=== PATIENT | female | born 1935 | race Caucasian/White ===

== ENCOUNTER 2017-07-13 14:02 | Inpatient (IN) ==
[2017-07-13] MEDS ORDERED: 0.9 % SODIUM CHLORIDE 1,000 ML IV ONE ×2 (14:33→16:26)
--- NOTE | 2017-07-13 14:40 | Emergency Department Note ---
Weakness HPI - General Chief complaint: Weakness Stated complaint: SOB, Weakness, Increased Edema Time Seen by Provider: 07/13/17 14:21 Source: patient, family, EMS Mode of arrival: EMS Limitations: no limitations - History of Present Illness HPI Narrative: 81-year-old female with a history of increased weakness over the past week. Family states she has been able to get out of bed because of the weakness. This is been greater than 1 week. Denies chest pain but is having some numbness of breath patient is a poor historian he does have a history of COPD and CHF she is on Aldactone and Lasix. Is on multiple pulmonary medications. Eyes any chest pain eyes any urgency frequency or dysuria denies any nausea vomiting or diarrhea issues. The heart rate is going approximately 120s-130. Appears to be in A. fib was told that she has had a tachycardia and had an ablation in the past. but I do not see any medications for control of the A. fib in her med list. She is on no blood thinners but does take an 81 mg aspirin a day. - Related Data Home Medications Medication Instructions Recorded Confirmed Albuterol Sulfate [Ventolin] 2.5 mg NEB PRN PRN 07/13/17 07/13/17 Budesonide/Formoterol Fumarate 10.2 gm IH DAILY 07/13/17 07/13/17 [Symbicort 80-4.5 Mcg Inhaler] Fluconazole [Diflucan] 100 mg PO DAILY 07/13/17 07/13/17 Furosemide [Lasix] 40 mg PO Q4HP PRN 07/13/17 07/13/17 Spironolactone [Aldactone] 50 mg PO DAILY 07/13/17 07/13/17 Tiotropium [place] [Spiriva] 18 mcg INH DAILY 07/13/17 07/13/17 azaTHIOprine [Imuran] 50 mg PO TID 07/13/17 07/13/17 Allergies Allergy/AdvReac Type Severity Reaction Status Date / Time Egg Derived Allergy Mild Sneezing Verified 07/13/17 14:04 adhesive tape AdvReac Mild Rash Verified 07/13/17 14:04 Sulfa (Sulfonamide AdvReac Mild Nausea Verified 07/13/17 14:04 Antibiotics) Review of Systems All systems ED: reviewed and negative except as stated. Constitutional: Denies: fever, chills Eyes: Denies: eye pain ENT ED: Denies: ear pain Cardiovascular: Denies: chest pain, palpitations Respiratory: Denies: shortness of breath, cough Gastrointestinal: Denies: abdominal pain, nausea Genitourinary: Denies: dysuria, urgency, frequency Musculoskeletal: Denies: back pain, joint swelling Integumentary: Denies: rash, lesions Neurological: Reports: weakness. Denies: headache, numbness, paresthesias, confusion Psychiatric: Denies: anxiety, depression Endocrine: Denies: fatigue Hematological/Lymphatic: Denies: easy bleeding Past Medical History - Past Medical History Medical history: Reports: atrial fibrillation, CHF, COPD - Social History smoking status: Former smoker Alcohol use: Reports: Unknown Drug use: Reports: none Physical Exam Limitations: no limitations General appearance: alert Head: atraumatic, normocephalic Eye: Present: normal appearance, PERRL ENT: normal exam, normal oropharynx Neck: Present: normal inspection, full ROM, trachea midline Chest: Present: normal inspection, symmetric chest wall rise. Absent: tenderness Respiratory: Present: normal lung sounds bilaterally. Absent: respiratory distress, wheezes Cardiovascular: Present: regular rate, normal rhythm. Absent: bradycardia, tachycardia Abdominal: Present: soft, normal bowel sounds. Absent: distention, tenderness, guarding, rebound, rigidity Extremities: Present: normal inspection, full ROM Back: Present: normal inspection, full ROM Neurological: Present: alert, oriented X3, CN II-XII intact, motor sensory deficit Psychiatric: Present: normal affect, normal mood Course Vital Signs Temperature 98.0 F 07/13/17 14:04 Pulse Rate 130 H 07/13/17 14:04 Respiratory Rate 22 07/13/17 14:04 Blood Pressure 155/82 07/13/17 14:04 Pulse Oximetry (%) 98 07/13/17 14:04 Temperature 98.0 F 07/13/17 14:04 Pulse Rate 103 H 07/13/17 17:46 Respiratory Rate 16 07/13/17 17:46 Blood Pressure 149/74 07/13/17 17:46 Pulse Oximetry (%) 94 07/13/17 17:46 Weakness - MDM Narrative Medical decision making narrative: In A. fib RVR, controlled with diltialzem drip. chest possible nodule and ct recommended. ua ok lactic was 2.5 Dr Anderson contacted and pt to be admitted - Lab Data Result diagrams: 07/13/17 14:41 07/13/17 14:41 Lab Results 07/13/17 07/13/17 07/13/17 Range/Units 14:41 14:41 14:41 WBC 12.0 H (4.5-11.0) K/mcL RBC 4.10 (4.00-5.20) M/mcL Hgb 15.3 H (12.0-15.0) g/dL Hct 45.0 (36.0-48.0) % MCV 109.7 H (80.0-100.0) fL MCH 37.4 H (26.0-34.0) pg MCHC 34.1 (31.0-36.0) g/dL RDW 18.2 H (11.5-14.5) % Plt Count 68 L (140-440) K/mcL MPV 9.0 (7.4-10.4) fL Total Counted 100 Seg Neutrophils % 93 H (38-78) % Band Neutrophils % 1 (0-10) % Lymphocytes % 2 L (15-49) % Monocytes % (Manual) 1 (1-12) % Metamyelocytes % 1 H (0-0) % Myelocytes % 2 H (0-0) % Nucleated RBCs 2 H (0-0) % Platelet Estimate Decreased (NORMAL) RBC Morphology Abnorm A (NORMAL) Basophilic Stippling Occ A (NONE SEEN) Anisocytosis 1+ A (NONE SEEN) Macrocytosis 2+ A (NONE SEEN) PT (11.9-14.5) sec INR (0.9-1.1) VBG Lactic Acid 2.5 H (0.5-2.2) mmol/L Sodium 138 (133-145) mmol/L Potassium 4.1 (3.3-5.1) mmol/L Chloride 88 L (96-108) mmol/L Carbon Dioxide 39 H (22-30) mmol/L Anion Gap 11.0 (8-16) BUN 53 H (8-23) mg/dl Creatinine 1.0 (0.6-1.1) mg/dl GFR Calculation 53 Glucose 143 H (70-105) mg/dL Calcium 9.7 (8.6-10.4) mg/dl Total Bilirubin 3.4 H (0.0-1.0) mg/dL AST 186 H (0-37) U/l ALT 66 H (0-40) U/l Alkaline Phosphatase 214 H (39-117) U/L Total Creatine Kinase (24-170) IU/L CK-MB (CK-2) (0-2.9) ng/ml Myoglobin (25-58) ng/ml Troponin T (0-0.03) ng/ml NT-Pro-B Natriuret Pep 4342.0 H (0-450) pg/ml Total Protein 6.7 (5.9-8.4) gm/dL Albumin 3.3 (3.2-5.2) gm/dL Globulin 3.4 (2.2-3.7) gm/dL Albumin/Globulin Ratio 1.0 (1.0-2.3) Urine Color Urine Appearance Urine pH (5.0-9.0) Ur Specific [place] (1.000-1.035) Urine Protein (NEG) mg/dL Urine Glucose (UA) (NEG) mg/dL Urine Ketones (NEG) mg/dL Urine Occult Blood (<0.03) mg/dL Urine Nitrate (NEG) Urine Bilirubin (NEG) mg/dL Urine Urobilinogen (NEG) mg/dL Ur Leukocyte Esterase (NEG) /uL Ur Culture Indicated? 07/13/17 07/13/17 07/13/17 Range/Units 14:41 14:41 14:41 WBC (4.5-11.0) K/mcL RBC (4.00-5.20) M/mcL Hgb (12.0-15.0) g/dL Hct (36.0-48.0) % MCV (80.0-100.0) fL MCH (26.0-34.0) pg MCHC (31.0-36.0) g/dL RDW (11.5-14.5) % Plt Count (140-440) K/mcL MPV (7.4-10.4) fL Total Counted Seg Neutrophils % (38-78) % Band Neutrophils % (0-10) % Lymphocytes % (15-49) % Monocytes % (Manual) (1-12) % Metamyelocytes % (0-0) % Myelocytes % (0-0) % Nucleated RBCs (0-0) % Platelet Estimate (NORMAL) RBC Morphology (NORMAL) Basophilic Stippling (NONE SEEN) Anisocytosis (NONE SEEN) Macrocytosis (NONE SEEN) PT 17.9 H (11.9-14.5) sec INR 1.5 H (0.9-1.1) VBG Lactic Acid (0.5-2.2) mmol/L Sodium (133-145) mmol/L Potassium (3.3-5.1) mmol/L Chloride (96-108) mmol/L Carbon Dioxide (22-30) mmol/L Anion Gap (8-16) BUN (8-23) mg/dl Creatinine (0.6-1.1) mg/dl GFR Calculation Glucose (70-105) mg/dL Calcium (8.6-10.4) mg/dl Total Bilirubin (0.0-1.0) mg/dL AST (0-37) U/l ALT (0-40) U/l Alkaline Phosphatase (39-117) U/L Total Creatine Kinase 155 (24-170) IU/L CK-MB (CK-2) 6.6 H (0-2.9) ng/ml Myoglobin 256 H (25-58) ng/ml Troponin T 0.02 (0-0.03) ng/ml NT-Pro-B Natriuret Pep (0-450) pg/ml Total Protein (5.9-8.4) gm/dL Albumin (3.2-5.2) gm/dL Globulin (2.2-3.7) gm/dL Albumin/Globulin Ratio (1.0-2.3) Urine Color Urine Appearance Urine pH (5.0-9.0) Ur Specific [place] (1.000-1.035) Urine Protein (NEG) mg/dL Urine Glucose (UA) (NEG) mg/dL Urine Ketones (NEG) mg/dL Urine Occult Blood (<0.03) mg/dL Urine Nitrate (NEG) Urine Bilirubin (NEG) mg/dL Urine Urobilinogen (NEG) mg/dL Ur Leukocyte Esterase (NEG) /uL Ur Culture Indicated? 07/13/17 Range/Units 16:32 WBC (4.5-11.0) K/mcL RBC (4.00-5.20) M/mcL Hgb (12.0-15.0) g/dL Hct (36.0-48.0) % MCV (80.0-100.0) fL MCH (26.0-34.0) pg MCHC (31.0-36.0) g/dL RDW (11.5-14.5) % Plt Count (140-440) K/mcL MPV (7.4-10.4) fL Total Counted Seg Neutrophils % (38-78) % Band Neutrophils % (0-10) % Lymphocytes % (15-49) % Monocytes % (Manual) (1-12) % Metamyelocytes % (0-0) % Myelocytes % (0-0) % Nucleated RBCs (0-0) % Platelet Estimate (NORMAL) RBC Morphology (NORMAL) Basophilic Stippling (NONE SEEN) Anisocytosis (NONE SEEN) Macrocytosis (NONE SEEN) PT (11.9-14.5) sec INR (0.9-1.1) VBG Lactic Acid (0.5-2.2) mmol/L Sodium (133-145) mmol/L Potassium (3.3-5.1) mmol/L Chloride (96-108) mmol/L Carbon Dioxide (22-30) mmol/L Anion Gap (8-16) BUN (8-23) mg/dl Creatinine (0.6-1.1) mg/dl GFR Calculation Glucose (70-105) mg/dL Calcium (8.6-10.4) mg/dl Total Bilirubin (0.0-1.0) mg/dL AST (0-37) U/l ALT (0-40) U/l Alkaline Phosphatase (39-117) U/L Total Creatine Kinase (24-170) IU/L CK-MB (CK-2) (0-2.9) ng/ml Myoglobin (25-58) ng/ml Troponin T (0-0.03) ng/ml NT-Pro-B Natriuret Pep (0-450) pg/ml Total Protein (5.9-8.4) gm/dL Albumin (3.2-5.2) gm/dL Globulin (2.2-3.7) gm/dL Albumin/Globulin Ratio (1.0-2.3) Urine Color Yellow Urine Appearance Clear Urine pH 5.0 (5.0-9.0) Ur Specific [place] 1.014 (1.000-1.035) Urine Protein Neg (NEG) mg/dL Urine Glucose (UA) Negative (NEG) mg/dL Urine Ketones Neg (NEG) mg/dL Urine Occult Blood Neg (<0.03) mg/dL Urine Nitrate Neg (NEG) Urine Bilirubin Neg (NEG) mg/dL Urine Urobilinogen 4.0 A (NEG) mg/dL Ur Leukocyte Esterase Neg (NEG) /uL Ur Culture Indicated? No Disposition Pt seen by POWER SYSTEMS ENGINEER/PA only: No Clinical Impression: Atrial fibrillation with RVR, Weakness Disposition: Xfer As Inpt ([facility]) Condition: Fair
[2017-07-13] MEDS ORDERED: DILTIAZEM 25 MG/5 ML VIAL IV ONE (14:54)
[2017-07-13] MEDS ORDERED: DILTIAZEM 125 MG in DEXTROSE 5% IN WATER 100 ML IV SCH (15:00)
[2017-07-13 15:47] LABS: ALT/SGPT 66 U/l (0-40); Albumin 3.3 gm/dL (3.2-5.2); Alkaline Phosphatase 214 U/L (39-117); Blood Urea Nitrogen 53 mg/dl (8-23)
--- NOTE | 2017-07-13 16:02 | XRay Report ---
INDICATION: Dyspnea TECHNIQUE: AP chest x-ray,portable semiupright COMPARISON: 11/16/2014, 09/19/2013 FINDINGS:There is right hilar enlargement. There is right-sided mediastinal enlargement. Findings are consistent with adenopathy or mass. There are nodular densities in the right lung. Findings are suspicious for metastases. Left lung is negative. Heart size is enlarged. No evidence for congestive heart failure. Chest CT scan with contrast material is recommended for further evaluation. IMPRESSION: 1. Right hilar and mediastinal enlargement. Recommend chest CT scan 2. Nodular densities in the right lung may be metastases. 3. Cardiomegaly without evidence for congestive heart failure. Interpreted and Authenticated by: Nnamdi Lujan 07/13/17
[2017-07-13 16:05] LABS: Mean Cell Volume 109.7 fL (80.0-100.0); Mean Corpuscular HGB Conc 34.1 g/dL (31.0-36.0); Mean Corpuscular Hemoglobin 37.4 pg (26.0-34.0); Platelet Count 68 K/mcL (140-440); Red Cell Distribution Width 18.2 % (11.5-14.5)
[2017-07-13 16:18] LABS: Anisocytosis 1+ (NONE SEEN); Band Neutrophils % 1 % (0-10); Basophilic Stippling OCC (NONE SEEN); Lymphocytes % 2 % (15-49); Macrocytosis 2+ (NONE SEEN); Metamyelocytes % 1 % (0-0); Monocytes % (Manual) 1 % (1-12); Myelocytes % 2 % (0-0); Platelet Estimate DECREASED (NORMAL); RBC Morphology ABNORM (NORMAL); Segmented Neutrophils % 93 % (38-78)
[2017-07-13] MEDS ORDERED: FUROSEMIDE 40 MG/4 ML VIAL IV ONE (16:57)
[2017-07-13 17:13] LABS: Appearance,Urine CLEAR; Bilirubin,Urine NEG (NEG); Color,Urine YELLOW; Glucose,Urine (UA) NEGATIVE (NEG); Leukocyte Esterase,Urine NEG /uL (NEG); Protein,Urine NEG (NEG); Specific Gravity,Urine 1.014 (1.000-1.035); Urine Blood NEG mg/dL (<0.03)
[2017-07-13] MEDS ORDERED: IPRATROPIUM/ALBUTEROL 3 ML AMPUL.NEB NEB ONE (17:53)
[2017-07-13 18:25] LABS: Creatine Kinase MB 6.6 ng/ml (0-2.9)
[2017-07-13] MEDS ORDERED: POLYETHYLENE GLYCOL 3350 17 GM PACKET PO PRN (20:02)
[2017-07-13] MEDS ORDERED: ACETAMINOPHEN 1,000 MG/100 ML BOTTLE IV PRN (20:02)
[2017-07-13] MEDS ORDERED: IPRATROPIUM/ALBUTEROL 3 ML AMPUL.NEB NEB PRN (20:02)
[2017-07-13] MEDS ORDERED: POTASSIUM CHLORIDE 20 MEQ PACKET PO PRN (20:02)
[2017-07-13] MEDS ORDERED: 0.9 % SODIUM CHLORIDE 1,000 ML IV SCH ×2 (20:02)
[2017-07-13] MEDS ORDERED: ACETAMINOPHEN 325 MG TABLET PO PRN (20:02)
[2017-07-13] MEDS ORDERED: MAGNESIUM SULFATE 2 GM/50 ML BAG IV PRN (20:02)
[2017-07-13] MEDS ORDERED: traZODone HCL 50 MG TABLET PO PRN (20:02)
[2017-07-13] MEDS ORDERED: ONDANSETRON 4 MG/2 ML VIAL IV PRN (20:02)
[2017-07-13] MEDS ORDERED: ALBUTEROL SULFATE 2.5 MG/3 ML NEBULIZER NEB PRN (20:02)
[2017-07-13 20:45] LABS: C-Reactive Protein 1.2 mg/dl (0.0-0.8)
[2017-07-13] MEDS: HYDROcodone/APAP 5/325MG TABLET PO PRN (20:50)
[2017-07-13] MEDS: DILTIAZEM 125 MG in 0.9 % SODIUM CHLORIDE 100 ML IV SCH (20:52)
[2017-07-13] MEDS: METOPROLOL TARTRATE 5 MG/5 ML VIAL IV SCH ×2 (20:54→21:30)
[2017-07-13] MEDS ORDERED: SENNOSIDES/DOCUSATE SODIUM 1 TAB TABLET PO SCH (21:00)
[2017-07-13] MEDS ORDERED: FUROSEMIDE 20 MG/2 ML VIAL IV ONE (21:30)
[2017-07-13] MEDS: CYANOCOBALAMIN (VITAMIN B-12) 500 MCG TABLET PO SCH (22:08)
[2017-07-13] MEDS: HEPARIN 5,000 UNIT/ML VIAL SQ SCH (22:08)
[2017-07-13] MEDS: DOCUSATE SODIUM 100 MG CAPSULE PO SCH (22:09)
[2017-07-13] MEDS: METOLAZONE 2.5 MG TABLET PO SCH (22:09)
[2017-07-13] MEDS: azaTHIOprine 50 MG TABLET PO SCH (22:09)
[2017-07-13] MEDS: 0.9 % SODIUM CHLORIDE 10 ML SYRINGE IV SCH (22:10)
[2017-07-13] MEDS ORDERED: 0.9 % SODIUM CHLORIDE 10 ML SYRINGE IV PRN (22:44)
--- NOTE | 2017-07-13 23:52 | History and Physical Report ---
DATE OF ADMISSION: 07/13/2017 DATE OF ADMISSION: 07/13/2017 REASON FOR ADMISSION: Weakness, generalized weight gain, lethargy, and shortness of breath. HISTORY OF CHIEF COMPLAINT: Niecy is an 81-year-old who lives with her family, along with her oJsesito at [place]. She has been in her baseline state of health and has been ambulating with the use of a walker. However, over the last 10 to 14 days, the patient has gotten progressively weaker wherein she has stopped ambulating and has been mostly bedridden. She has gained substantial amount of weight, over 20 pounds, with significant dependent edema including bilateral lower extremity up to the thighs. Over the last one week, she has had increasing orthopnea and progressive shortness of breath, limiting her functionality. Symptoms have progressed that over the last couple of days she has been barely able to move. She has had significant loss of appetite. However, she denies associated cough, fever, chest palpitation, diarrhea, dysuria, or bloody stool. She further denies joint pain. She endorses to generalized bruising, upper and lower extremities. With worsening symptoms, she came to [facility] ER along with her daughter, Dona and her Josesito. Initial workup was significant for atrial fibrillation with RVR. The patient was started on diltiazem drip. She received bronchodilators for history of COPD and received Lasix for shortness of breath. After initial workup, Hospitalist Service was consulted for admission. At the time of evaluation, the patient is fairly short of breath, fatigue, lethargic and was not able to provide a detailed history. However, most of the history was obtained from family and medical records and ED physician. REVIEW OF SYSTEMS: A 10-point review of system was performed and is negative except the ones discussed above. PAST MEDICAL HISTORY: Significant for: 1. Atrial fibrillation, status post ablation. 2. Reactive airway disease/COPD. 3. History of congestive heart failure. 4. History of SLE, currently on azathioprine, managed by Dr. Walton. ALLERGIES: Known to SULFA. SOCIAL HISTORY: No history of smoking or alcoholism. Lives with her in [place]. CURRENT MEDICATIONS: 1. Azathioprine 50 mg 3 times a day. 2. Tiotropium 18 mcg inhaled daily. 3. Aldactone 50 mg daily. 4. Furosemide 40 every 4 hours as needed. 5. Fluconazole 100 mg daily. 6. Symbicort inhaled 10.2 daily. 7. Albuterol inhaled every 4 hours. PHYSICAL EXAMINATION: GENERAL EXAM: The patient is anxious, short of breath, fatigue, lethargic. VITAL SIGNS: BMI 31.3. Height 5 feet 7 inches. Blood pressure 128/49. Respiratory rate 18. Temperature 98. Pulse between 130s and 140, improving to 110 on diltiazem drip. Saturations 98 percent on 4 liters of oxygen. HEENT: Pupils symmetric. Oral cavity dry. No ear or nose discharge. Head: Normocephalic and atraumatic. NECK: No lymphadenopathy. CHEST: S1, S2. Tachycardia, irregular rhythm. ESM grade 1. Bilateral diminished breath sounds, late inspiratory crackles, shallow breathing. ABDOMEN: Pendulous, edematous. SKIN: No suspicious lesions. Generalized ecchymosis on the skin of upper and lower extremities. LOWER EXTREMITIES: Significant for 2+ pitting edema from the thighs to the ankle. No joint swelling or erythema. PSYCHIATRIC: Anxious, lethargic, fatigued, but cooperative. NEURO: Moving all four extremities. Higher functions could not be checked as the patient is extremely lethargic and fatigued, but she is oriented. LABS AND IMAGING: White count 12, hemoglobin 15, platelets 68. ESR 10. INR 1.5. Lactic acid 2.5. Sodium 138, potassium 4.1, creatinine 1, BUN 53, bilirubin 3.4. Ferritin 1205. AST 186, ALT 66. CK-MB 6.6. Troponin negative. BNP 4342. UA unremarkable. X-ray chest: Right hilar mediastinal enlargement. Nodular density in the right lung with metastasis. Cardiomegaly without evidence of congestive heart failure ASSESSMENT AND PLAN: An 81-year-old admitted with anasarca, shortness of breath, atrial fibrillation, rapid ventricular response. 1. Atrial fibrillation, rapid ventricular response. The patient is started on diltiazem drip. Continue rate control measures. 2. Anasarca, unclear etiology, likely cardiac. Start patient on diuretics including Lasix, spironolactone/metolazone for sequential nephron blockade, while we will target 8 to 10 liters net negative over the next 72 hours. [place] catheter has been placed. Echocardiogram to evaluate left ventricular systolic function. 3. Lung nodules. CT scan of chest in the a.m. to rule out mass lesion. 4. Hypoxic respiratory infection secondary to combination of chronic obstructive pulmonary disease exacerbation/anasarca with hypoventilation. Continue pulmonary toilet, supplemental oxygen, and aggressive diuresis along with bronchodilators. 5. Other prior medical issues, including: A. History of systemic lupus erythematosus. Continue azathioprine. B. Reactive airway disease/chronic obstructive pulmonary disease. Continue Spiriva and ventolin, along with Symbicort. C. Prophylaxis. Heparin CODE STATUS: FULL CODE. PLAN: 1. Admit as inpatient in ICU. 2. Aggressive diuresis. 3. Rate control measures. 4. Aggressive physical therapy in light of significant deconditioning. 5. Case management to arrange SNF transfer. Overall, a high-complexity admit in this patient with anasarca, atrial fibrillation, RVR, and severe deconditioning. Plan a minimum 2 midnight stay. AA:arpan Job ID: [id number] Doc ID: [id number] Jad NASSAR
[2017-07-14] MEDS: HYDROcodone/APAP 5/325MG TABLET PO PRN ×2 (00:17→04:51)
[2017-07-14] MEDS ORDERED: DILTIAZEM 125 MG/25 ML VIAL IV ONE (01:00)
[2017-07-14] MEDS: DILTIAZEM 125 MG in 0.9 % SODIUM CHLORIDE 100 ML IV SCH ×2 (01:28→09:08)
[2017-07-14] MEDS ORDERED: METOPROLOL TARTRATE 5 MG/5 ML VIAL IV PRN ×2 (02:06→17:58)
[2017-07-14] MEDS ORDERED: FUROSEMIDE 20 MG/2 ML VIAL IV ONE ×2 (02:07→02:50)
[2017-07-14] MEDS ORDERED: METOPROLOL TARTRATE 5 MG/5 ML VIAL IV ONE (02:50)
[2017-07-14] MEDS: 0.9 % SODIUM CHLORIDE 10 ML SYRINGE IV SCH ×3 (04:52→21:13)
[2017-07-14 06:42] LABS: Mean Cell Volume 110.5 fL (80.0-100.0); Mean Corpuscular HGB Conc 34.2 g/dL (31.0-36.0); Mean Corpuscular Hemoglobin 37.8 pg (26.0-34.0); Platelet Count 51 K/mcL (140-440); RBC 3.48 M/mcL (4.00-5.20); Red Cell Distribution Width 18.6 % (11.5-14.5)
[2017-07-14 08:00] LABS: ALT/SGPT 57 U/l (0-40); Albumin 2.6 gm/dL (3.2-5.2); Albumin/Globulin Ratio 0.9 (1.0-2.3); Alkaline Phosphatase 179 U/L (39-117); Bilirubin,Direct 1.6 mg/dL (0.0-0.3); Blood Urea Nitrogen 47 mg/dl (8-23); Gamma Glutamyl Transpeptidase 247 U/L (5-36); Uric Acid 8.1 mg/dL (2.5-8.0)
[2017-07-14 08:15] LABS: Anisocytosis 1+ (NONE SEEN); Band Neutrophils % 7 % (0-10); Lymphocytes % 1 % (15-49); Macrocytosis 1+ (NONE SEEN); Monocytes % (Manual) 5 % (1-12); Platelet Estimate DECREASED (NORMAL); RBC Morphology ABNORM (NORMAL); Segmented Neutrophils % 87 % (38-78)
[2017-07-14] MEDS ORDERED: FORMOTEROL FUMARATE INH SCH (09:00)
[2017-07-14] MEDS ORDERED: MULTIVIT,THER IRON,CA,FA & MIN 1 TABLET PO SCH (09:00)
[2017-07-14] MEDS ORDERED: BUDESONIDE INH SCH (09:00)
[2017-07-14] MEDS ORDERED: FOLIC ACID 1 MG TABLET PO SCH (09:00)
[2017-07-14] MEDS ORDERED: TIOTROPIUM BROMIDE 18 MCG INHALANT INH SCH (09:00)
[2017-07-14] MEDS ORDERED: FLUCONAZOLE 100 MG TABLET PO SCH (09:00)
[2017-07-14] MEDS ORDERED: SPIRONOLACTONE 25 MG TABLET PO SCH (09:00)
[2017-07-14] MEDS: METOLAZONE 2.5 MG TABLET PO SCH ×2 (09:07→15:39)
[2017-07-14] MEDS: FUROSEMIDE 40 MG/4 ML VIAL IV SCH ×2 (09:29→15:39)
--- NOTE | 2017-07-14 12:12 | Internal Med Progress Note ---
Medical - PN: Subj Patient information: Note initiated : 07/14/17 at 12:07 pm Service Date, if different from initiated Date: [] Patient: Niecy Canchola 81 y/o F admitted on 07/13/17 for Anasarca, SOB, AFib w/ RVR. Chief Complaint: [] Interval history: 81-year-old with profound weakness A. fib RVR anasarca and acute pulmonary edema. admitted to telemetry. Aggressive diuresis/rate control measures. Echocardiogram pending. PT OT eval 07/14- moderate response to diuretics with over thousand cc out last 18 hours. overnight fever chills. Persistent shortness of breath. Generalized ecchymosis. Foleys draining dark urine. Family at bedside.white count 11.2, platelets 51. 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 Will need oncology follow-up and outpatient. improving BUN. Bilirubin at 3.3 and indirect fraction 1.7. downtrending LFTs. ultrasound right upper quadrant. mild rhabdomyolysis clinically clearing. clinical picture suggestive of pulmonary hypertension with passive hepatic congestion and possible congestive hepatopathy. Await echocardiogram. continue aggressive diuresis. Continue close monitoring of map due to cardiac output dependent on preload. systolics around 120 - Constitutional Vitals: Vital Signs Temp Pulse Resp BP Pulse Ox 98.0 F 102 H 13 122/67 93 07/14/17 07:13 07/14/17 09:01 07/14/17 12:06 07/14/17 12:01 07/14/17 09:01 Period Temp Pulse Resp BP Sys/Orellana Pulse Ox Last 24 Hr 97.7 F-99.4 F 40-133 13-37 93-170/39-110 87-100 Intake and Output 07/13/17 07/14/17 07/14/17 21:59 05:59 13:59 Intake Total 1680 / 1680 1404 / 1404 Output Total 0 / 0 887 / 887 515 / 515 Balance 1680 / 1680 517 / 517 -515 / -515 Weight 185 lb 4.8 oz Intake & Output: Intake & Output 07/13/17 07/14/17 07/14/17 21:59 05:59 13:59 Intake Total 1680 / 1680 1404 / 1404 Output Total 0 / 0 887 / 887 515 / 515 Balance 1680 / 1680 517 / 517 -515 / -515 Weight 185 lb 4.8 oz Intake: IV 1680 / 1680 1044 / 1044 Sodium Chloride 0.9% 1,000 ml @ 1666 / 1666 933 / 933 Wide Open IV [facility] Rx#: [id number] Cardizem 125 mg In Dextrose 5% 111 / 111 in Water 100 ml @ 5 MG/HR 5 mls /hr IV Q12H [facility] Rx#:[id number] Oral 360 / 360 Output: Urine Catheter Amount 887 / 887 155 / 155 Void Amount 0 / 0 360 / 360 Fem Cath 0 / 0 General appearance: morbidly obese, no acute distress Exam: short of breath On 2 L oxygen Generalized lymphedema/anasarca Ecchymosis Anxious Foleys draining clear urine Medical - PN: Obj Da - Labs CBC & Chem 7: 07/14/17 03:43 07/14/17 03:43 Labs: Abnormal Lab Results 07/14/17 07/14/17 07/13/17 03:43 03:43 16:32 WBC 11.2 H RBC 3.48 L Hgb MCV 110.5 H MCH 37.8 H RDW 18.6 H Plt Count 51 L Seg Neutrophils % 87 H Lymphocytes % 1 L Metamyelocytes % Myelocytes % Nucleated RBCs RBC Morphology Abnorm A Polychromasia 1+ A Basophilic Stippling Anisocytosis 1+ A Macrocytosis 1+ A PT INR VBG Lactic Acid Chloride 94 L Carbon Dioxide 37 H BUN 47 H Glucose Uric Acid 8.1 H Calcium 8.5 L Ferritin Total Bilirubin 3.3 H Direct Bilirubin 1.6 H GGT 247 H AST 154 H ALT 57 H Alkaline Phosphatase 179 H Lactate Dehydrogenase 936 H CK-MB (CK-2) Myoglobin C-Reactive Protein NT-Pro-B Natriuret Pep Total Protein 5.5 L Albumin 2.6 L Albumin/Globulin Ratio 0.9 L Urine Urobilinogen 4.0 A 07/13/17 07/13/17 07/13/17 14:41 14:41 14:41 WBC RBC Hgb MCV MCH RDW Plt Count Seg Neutrophils % Lymphocytes % Metamyelocytes % Myelocytes % Nucleated RBCs RBC Morphology Polychromasia Basophilic Stippling Anisocytosis Macrocytosis PT 17.9 H INR 1.5 H VBG Lactic Acid Chloride Carbon Dioxide BUN Glucose Uric Acid Calcium Ferritin 1205.0 H Total Bilirubin Direct Bilirubin GGT AST ALT Alkaline Phosphatase Lactate Dehydrogenase CK-MB (CK-2) 6.6 H Myoglobin 256 H C-Reactive Protein 1.2 H NT-Pro-B Natriuret Pep Total Protein Albumin Albumin/Globulin Ratio Urine Urobilinogen 07/13/17 07/13/17 07/13/17 14:41 14:41 14:41 WBC 12.0 H RBC Hgb 15.3 H MCV 109.7 H MCH 37.4 H RDW 18.2 H Plt Count 68 L Seg Neutrophils % 93 H Lymphocytes % 2 L Metamyelocytes % 1 H Myelocytes % 2 H Nucleated RBCs 2 H RBC Morphology Abnorm A Polychromasia Basophilic Stippling Occ A Anisocytosis 1+ A Macrocytosis 2+ A PT INR VBG Lactic Acid 2.5 H Chloride 88 L Carbon Dioxide 39 H BUN 53 H Glucose 143 H Uric Acid Calcium Ferritin Total Bilirubin 3.4 H Direct Bilirubin GGT AST 186 H ALT 66 H Alkaline Phosphatase 214 H Lactate Dehydrogenase CK-MB (CK-2) Myoglobin C-Reactive Protein NT-Pro-B Natriuret Pep 4342.0 H Total Protein Albumin Albumin/Globulin Ratio Urine Urobilinogen Meds: Medications Acetaminophen (Tylenol) 650 mg PO Q4-6HP PRN PRN Reason: PAIN/FEVER > 101 Hydrocodone Bitart/Acetaminophen ([place] 5/325mg) 1 tab PO Q4HP PRN PRN Reason: PAIN LEVEL 3-6 Last Admin: 07/14/17 04:51 Dose: 1 tab Albuterol Sulfate (Ventolin) 2.5 mg NEB PRN PRN PRN Reason: Shortness Of Breath Albuterol/Ipratropium (Duoneb) 3 ml NEB Q4HP PRN PRN Reason: Shortness Of Breath Azathioprine (Imuran) 50 mg PO TID [facility] Last Admin: 07/13/17 22:09 Dose: 50 mg Cyanocobalamin (Vitamin B-12) 1,000 mcg PO BID [facility] Stop: 07/18/17 09:01 Last Admin: 07/13/17 22:08 Dose: 1,000 mcg Docusate Sodium (Colace) 100 mg PO BID [facility] Last Admin: 07/13/17 22:09 Dose: 100 mg Fluconazole (Diflucan) 100 mg PO DAILY [facility] Folic Acid (Folic Acid) 1 mg PO DAILY [facility] Furosemide (Lasix) 40 mg IV BIDD [facility] Last Admin: 07/14/17 09:29 Dose: 40 mg Heparin Sodium (Porcine) (Heparin) 5,000 unit SQ Q12 [facility] Last Admin: 07/13/17 22:08 Dose: 5,000 unit Heparin Sodium (Porcine) (Heparin Flush) 2 ml IV Q12 [facility] Diltiazem HCl 125 mg/ Sodium (Chloride) 125 mls @ 5 mls/hr IV Q12H [facility]; 5 MG/HR PRN Reason: Protocol Last Admin: 07/14/17 09:08 Dose: Not Given Magnesium Sulfate (Magnesium Sulfate) 2 gm in 50 mls @ 50 mls/hr IV UD PRN PRN Reason: MG = or < 1.7 Acetaminophen (Ofirmev) 1,000 mg in 100 mls @ 200 mls/hr IV Q6HP PRN PRN Reason: PAIN/FEVER > 101 Iron Carb/Multivit/Electrotherapist/Folic Acid (Multivitamin W/Minerals) 1 tab PO DAILY [facility] Metolazone (Zaroxolyn) 2.5 mg PO BID@0730,1530 [facility] Last Admin: 07/14/17 09:07 Dose: 2.5 mg Metoprolol Tartrate (Lopressor) 5 mg IV Q4HP PRN PRN Reason: Tachyarrhythmias Ondansetron HCl (Zofran) 4 mg IV Q4-6HP PRN PRN Reason: Nausea And Vomiting Budesonide/Formoterol Fumarate [Symbicort 80-4.5 1 dose INH DAILY [facility] Pneumococcal Polyvalent Vaccine (Pneumovax 23) 0.5 ml IM .ONCE ONE Stop: 07/15/17 10:01 Polyethylene Glycol (Miralax) 17 gm PO DAILYP PRN PRN Reason: Constipation Potassium Chloride (Klor-Con) 40 meq PO DAILYP PRN PRN Reason: K+ < 3.5 Senna/Docusate Sodium (Senna Plus Tablet) 1 tab PO HS [facility] Last Admin: 07/13/17 22:08 Dose: 1 tab Sodium Chloride (Saline Flush) 10 ml IV Q8 [facility] Last Admin: 07/14/17 04:52 Dose: 10 ml Sodium Chloride (Saline Flush) 10 ml IV UD PRN PRN Reason: FLUSH Spironolactone (Aldactone) 50 mg PO DAILY [facility] Last Admin: 07/14/17 09:07 Dose: 50 mg Tiotropium [place] (Spiriva) 18 mcg INH DAILY [facility] Trazodone HCl (Desyrel) 50 mg PO HSP PRN PRN Reason: Insomnia Last Admin: 07/13/17 22:09 Dose: 50 mg Medical - PN: A/P - Time Spent With Patient Total time spent is greater than 50% in coordination of care (as documented) at patient's floor/unit and/or counseling patient: 25 - 35 minutes (1) Atrial fibrillation with RVR Status: Acute Assessment and plan: * A. fib RVR- currently rate controlled on beta ophelia. Off diltiazem drip * Anasarca- likely secondary pulmonary hypertension. However await echocardiogram. continue aggressive diuresis. * hypoxic respiratory insufficiency- Check ABGs. Elevated bicarbonate suggest ventilatory dysfunction with CO2 retention. Gastelum corrected PCO2 68 * Elevated LFTs possibly congestive hepatopathy. history of cirrhosis. 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
[2017-07-14] MEDS ORDERED: IOPAMIDOL 100 ML BOTTLE IV ONE (14:43)
--- NOTE | 2017-07-14 15:03 | Cat Scan Report ---
CLINICAL INFORMATION: Abnormal chest x-ray. Dyspnea. COMPARISON: Chest x-ray dated 07/13/2017 TECHNIQUE: Axial contrast enhanced images through the chest. Sagittally and coronally reformatted images. MIP reformatted images. 70 mL contrast material injected intravenously. FINDINGS: Severe centrilobular emphysema. This is suggestive of smoking history. Large mediastinal and right hilar mass. Mediastinal mass extends from the superior mediastinum, adjacent to the right subclavian vein caudally to the right hilum. Appearance is consistent with pathologic adenopathy. There is a large right hilar mass. This causes effacement of the right middle lobe and upper lobe pulmonary arteries. There is significant effacement of right pulmonary veins. Right upper lobe and middle lobe bronchi are also effaced. No significant pulmonary parenchymal collapse. Right hilar mass extends caudally along the right lower lobe pulmonary artery. There are right upper lobe pulmonary parenchymal masses. Masses extend from the right hilum to the pleural surface. There is soft tissue abnormality extending along vascular structures to the lung periphery. Appearance is consistent with neoplasm. This may be primary or metastatic. Right lower lobe and right middle lobe are negative. No pulmonary parenchymal mass. Left lung is negative. Left hilum is negative. No supraclavicular or axillary adenopathy. There is a small right pleural effusion. No left pleural effusion. Markedly abnormal liver. Liver is severely nodular consistent with cirrhosis. There is ascitic fluid. No detectable intrahepatic mass. There are surgical clips in the gallbladder fossa. Pancreas is negative. There are compression deformities of the T7 and T10 vertebral bodies. These findings are new since 11/16/2014. Fractures may be pathologic although well-defined lytic lesions are not identified. No significant paraspinal soft tissue mass. No rib lesions. Sternum is negative. Thoracic and upper lumbar vertebral bodies are somewhat heterogeneous and metastatic disease is not excluded IMPRESSION: 1. Very large mediastinal and hilar mass consistent with neoplasm. Effacement of bronchial and vascular structures as above 2. Right upper lobe pulmonary parenchymal nodules are consistent with cancer. 3. Compression deformity of the T7 and T10 vertebral bodies, new since 2014 4. Severe cirrhosis. Small amount of ascitic fluid 5. Centrilobular emphysema The exam was performed using radiation dose optimization techniques including, but not limited to, automated exposure control, adjustment of the mA and/or kV according to patient size and use of iterative reconstruction technique. Interpreted and Authenticated by: Nnamdi Luajn 07/14/17
[2017-07-14] MEDS: HEPARIN 5,000 UNIT/ML VIAL SQ SCH ×2 (15:39→21:06)
[2017-07-14] MEDS: CYANOCOBALAMIN (VITAMIN B-12) 500 MCG TABLET PO SCH ×2 (15:40→21:08)
[2017-07-14] MEDS: azaTHIOprine 50 MG TABLET PO SCH ×3 (15:41→21:06)
[2017-07-14] MEDS: DOCUSATE SODIUM 100 MG CAPSULE PO SCH ×2 (15:44→21:09)
[2017-07-14] MEDS ORDERED: POTASSIUM CHLORIDE 20 MEQ PACKET PO PRN (17:58)
[2017-07-14] MEDS ORDERED: ACETAMINOPHEN 1,000 MG/100 ML BOTTLE IV PRN (17:58)
[2017-07-14] MEDS ORDERED: ALBUTEROL SULFATE 2.5 MG/3 ML NEBULIZER NEB PRN (17:58)
[2017-07-14] MEDS ORDERED: ONDANSETRON 4 MG/2 ML VIAL IV PRN (17:58)
[2017-07-14] MEDS ORDERED: MAGNESIUM SULFATE 2 GM/50 ML BAG IV PRN (17:58)
[2017-07-14] MEDS ORDERED: HYDROcodone/APAP 5/325MG TABLET PO PRN (17:58)
[2017-07-14] MEDS ORDERED: 0.9 % SODIUM CHLORIDE 10 ML SYRINGE IV PRN (17:58)
[2017-07-14] MEDS ORDERED: traZODone HCL 50 MG TABLET PO PRN (17:58)
[2017-07-14] MEDS ORDERED: ACETAMINOPHEN 325 MG TABLET PO PRN (17:58)
[2017-07-14] MEDS ORDERED: IPRATROPIUM/ALBUTEROL 3 ML AMPUL.NEB NEB PRN (17:58)
[2017-07-14] MEDS ORDERED: POLYETHYLENE GLYCOL 3350 17 GM PACKET PO PRN (17:58)
[2017-07-14] MEDS ORDERED: DILTIAZEM 125 MG in 0.9 % SODIUM CHLORIDE 100 ML IV SCH (20:02)
[2017-07-14] MEDS ORDERED: SENNOSIDES/DOCUSATE SODIUM 1 TAB TABLET PO SCH (21:00)
[2017-07-14] MEDS ORDERED: LORazepam 2 MG/ML VIAL IV PRN (23:23)
[2017-07-14] MEDS ORDERED: HYDROmorphone 2 MG/ML VIAL IV PRN (23:24)
[2017-07-14] MEDS ORDERED: LORazepam 2 MG/ML VIAL ONE (23:26)
[2017-07-14] MEDS ORDERED: HYDROmorphone 2 MG/ML VIAL ONE (23:26)
[2017-07-15 06:50] LABS: ALT/SGPT 63 U/l (0-40); Albumin 3.1 gm/dL (3.2-5.2); Albumin/Globulin Ratio 1.1 (1.0-2.3); Alkaline Phosphatase 187 U/L (39-117); Bilirubin,Direct 2.3 mg/dL (0.0-0.3); Blood Urea Nitrogen 66 mg/dl (8-23); Gamma Glutamyl Transpeptidase 280 U/L (5-36); Uric Acid 10.7 mg/dL (2.5-8.0)
[2017-07-15] MEDS: 0.9 % SODIUM CHLORIDE 10 ML SYRINGE IV SCH (07:00)
[2017-07-15] MEDS ORDERED: METOLAZONE 2.5 MG TABLET PO SCH (07:30)
[2017-07-15] MEDS ORDERED: FUROSEMIDE 40 MG/4 ML VIAL IV SCH (08:00)
[2017-07-15] MEDS ORDERED: BUDESONIDE INH SCH (09:00)
[2017-07-15] MEDS ORDERED: FORMOTEROL FUMARATE INH SCH (09:00)
[2017-07-15] MEDS ORDERED: SPIRONOLACTONE 25 MG TABLET PO SCH (09:00)
[2017-07-15] MEDS ORDERED: TIOTROPIUM BROMIDE 18 MCG INHALANT INH SCH (09:00)
[2017-07-15] MEDS ORDERED: FLUCONAZOLE 100 MG TABLET PO SCH (09:00)
[2017-07-15] MEDS ORDERED: MULTIVIT,THER IRON,CA,FA & MIN 1 TABLET PO SCH (09:00)
[2017-07-15] MEDS ORDERED: FOLIC ACID 1 MG TABLET PO SCH (09:00)
[2017-07-15] MEDS ORDERED: PNEUMOCOCCAL 23-VAL P-SAC VAC 0.5 ML VIAL IM ONE (10:00)
[2017-07-15] MEDS ORDERED: LACTOPEROXI/GLUC OXID/POT THIO 1 EACH GEL..EA. TOPICAL PRN (11:08)
[2017-07-15] MEDS ORDERED: ONDANSETRON 4 MG/2 ML VIAL IV PRN (11:08)
[2017-07-15] MEDS ORDERED: LORazepam 2 MG/ML VIAL IV PRN (11:08)
[2017-07-15] MEDS: DOCUSATE SODIUM 100 MG CAPSULE PO SCH (12:29)
[2017-07-15] MEDS: HEPARIN 5,000 UNIT/ML VIAL SQ SCH (12:29)
[2017-07-15] MEDS: azaTHIOprine 50 MG TABLET PO SCH (12:30)
[2017-07-15] MEDS: CYANOCOBALAMIN (VITAMIN B-12) 500 MCG TABLET PO SCH (12:31)
--- NOTE | 2017-07-15 16:20 | Internal Med Progress Note ---
Medical - PN: Subj Patient information: Note initiated : 07/15/17 at 4:17 pm Service Date, if different from initiated Date: [] Patient: Niecy Canchola 81 y/o F admitted on 07/13/17 for Anasarca, SOB, AFib w/ RVR. Chief Complaint: [] Interval history: 81-year-old with profound weakness A. fib RVR anasarca and acute pulmonary edema. admitted to telemetry. Aggressive diuresis/rate control measures. Echocardiogram pending. PT OT eval 07/14- moderate response to diuretics with over thousand cc out last 18 hours. overnight fever chills. Persistent shortness of breath. Generalized ecchymosis. Foleys draining dark urine. Family at bedside.white count 11.2, platelets 51. 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 Will need oncology follow-up and outpatient. improving BUN. Bilirubin at 3.3 and indirect fraction 1.7. downtrending LFTs. ultrasound right upper quadrant. mild rhabdomyolysis clinically clearing. clinical picture suggestive of pulmonary hypertension with passive hepatic congestion and possible congestive hepatopathy. Await echocardiogram. continue aggressive diuresis. Continue close monitoring of map due to cardiac output dependent on preload. systolics around 120 07/15 Patient seen examined, no acute overnight issues labs and images reviewed patients family at the bedside educated regarding overall poor prognosis They requested comfort care Patient will be transitioned to comfort care status. Pertinent ROS: unable due to mental status. - Constitutional Vitals: Vital Signs Temp Pulse Resp BP Pulse Ox 97.2 F 80 24 H 84/49 100 07/15/17 07:09 07/15/17 03:42 07/15/17 07:09 07/15/17 07:09 07/15/17 07:09 Period Temp Pulse Resp BP Sys/Orellana Pulse Ox Last 24 Hr 97.2 F-98.3 F 80-114 24-24 84-106/49-76 90-100 Intake and Output 07/15/17 07/15/17 07/15/17 05:59 13:59 21:59 Output Total 650 / 650 Balance -650 / -650 Intake & Output: Intake & Output 07/15/17 07/15/17 07/15/17 05:59 13:59 21:59 Output Total 650 / 650 Balance -650 / -650 Output: Urine Catheter Amount 650 / 650 Exam: Constitutional; Afebrile, drowsy. Eyes- No icterus, , No periorbital swelling Ears- Ext ear normal, Neck- Midline trachea, supple Respiratory system: Air Entry equal on both sides, No crackles or wheezing, no rhonchi. ant exam only CVS- Rate rhythm regular, S1,S2 heard, no gallop, no rub. Medical - PN: Obj Da - Labs CBC & Chem 7: 07/14/17 03:43 07/15/17 03:58 Labs: Abnormal Lab Results 07/15/17 07/14/17 07/14/17 03:58 03:43 03:43 WBC 11.2 H RBC 3.48 L Hgb MCV 110.5 H MCH 37.8 H RDW 18.6 H Plt Count 51 L Seg Neutrophils % 87 H Lymphocytes % 1 L Metamyelocytes % Myelocytes % Nucleated RBCs RBC Morphology Abnorm A Polychromasia 1+ A Basophilic Stippling Anisocytosis 1+ A Macrocytosis 1+ A PT INR VBG Lactic Acid Sodium 147 H Chloride 93 L 94 L Carbon Dioxide 40 H 37 H BUN 66 H 47 H Creatinine 1.3 H Glucose Uric Acid 10.7 H 8.1 H Calcium 8.5 L Phosphorus 7.2 H* Ferritin Total Bilirubin 3.7 H 3.3 H Direct Bilirubin 2.3 H 1.6 H GGT 280 H 247 H AST 168 H 154 H ALT 63 H 57 H Alkaline Phosphatase 187 H 179 H Lactate Dehydrogenase 1083 H 936 H CK-MB (CK-2) Myoglobin C-Reactive Protein NT-Pro-B Natriuret Pep Total Protein 5.5 L Albumin 3.1 L 2.6 L Albumin/Globulin Ratio 0.9 L Urine Urobilinogen 07/13/17 07/13/17 07/13/17 16:32 14:41 14:41 WBC RBC Hgb MCV MCH RDW Plt Count Seg Neutrophils % Lymphocytes % Metamyelocytes % Myelocytes % Nucleated RBCs RBC Morphology Polychromasia Basophilic Stippling Anisocytosis Macrocytosis PT INR VBG Lactic Acid Sodium Chloride Carbon Dioxide BUN Creatinine Glucose Uric Acid Calcium Phosphorus Ferritin 1205.0 H Total Bilirubin Direct Bilirubin GGT AST ALT Alkaline Phosphatase Lactate Dehydrogenase CK-MB (CK-2) 6.6 H Myoglobin 256 H C-Reactive Protein 1.2 H NT-Pro-B Natriuret Pep Total Protein Albumin Albumin/Globulin Ratio Urine Urobilinogen 4.0 A 07/13/17 07/13/17 07/13/17 14:41 14:41 14:41 WBC RBC Hgb MCV MCH RDW Plt Count Seg Neutrophils % Lymphocytes % Metamyelocytes % Myelocytes % Nucleated RBCs RBC Morphology Polychromasia Basophilic Stippling Anisocytosis Macrocytosis PT 17.9 H INR 1.5 H VBG Lactic Acid 2.5 H Sodium Chloride 88 L Carbon Dioxide 39 H BUN 53 H Creatinine Glucose 143 H Uric Acid Calcium Phosphorus Ferritin Total Bilirubin 3.4 H Direct Bilirubin GGT AST 186 H ALT 66 H Alkaline Phosphatase 214 H Lactate Dehydrogenase CK-MB (CK-2) Myoglobin C-Reactive Protein NT-Pro-B Natriuret Pep 4342.0 H Total Protein Albumin Albumin/Globulin Ratio Urine Urobilinogen 07/13/17 14:41 WBC 12.0 H RBC Hgb 15.3 H MCV 109.7 H MCH 37.4 H RDW 18.2 H Plt Count 68 L Seg Neutrophils % 93 H Lymphocytes % 2 L Metamyelocytes % 1 H Myelocytes % 2 H Nucleated RBCs 2 H RBC Morphology Abnorm A Polychromasia Basophilic Stippling Occ A Anisocytosis 1+ A Macrocytosis 2+ A PT INR VBG Lactic Acid Sodium Chloride Carbon Dioxide BUN Creatinine Glucose Uric Acid Calcium Phosphorus Ferritin Total Bilirubin Direct Bilirubin GGT AST ALT Alkaline Phosphatase Lactate Dehydrogenase CK-MB (CK-2) Myoglobin C-Reactive Protein NT-Pro-B Natriuret Pep Total Protein Albumin Albumin/Globulin Ratio Urine Urobilinogen Meds: Medications Docusate Sodium (Colace) 100 mg PO BID [facility] Glucose Oxid/Lactoperoxid/Muramidas (Biotene) 1 each TOPICAL PRN PRN PRN Reason: Dry Mouth Lorazepam (Ativan) 0 mg IV Q1HP PRN; Protocol PRN Reason: ANXIETY/SEDATION Morphine Sulfate (Morphine) 0 mg IV Q1HP PRN PRN Reason: Pain Morphine Sulfate (Morphine) 4 mg NEB Q4HP PRN PRN Reason: Shortness Of Breath Ondansetron HCl (Zofran) 4 mg IV Q4HP PRN PRN Reason: Nausea And Vomiting Medical - PN: A/P - Time Spent With Patient Total time spent is greater than 50% in coordination of care (as documented) at patient's floor/unit and/or counseling patient: - Narrative A/P Narrative: A/P\ Afib with RVR Generalized Anasarca abnormal liver function test Mediastinal mass, 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 dnr comfort care Medical - PN: Qual - VTE Deep Vein Thrombosis/Pulmonary Embolism Present on Admission: No
[2017-07-15] MEDS ORDERED: DOCUSATE SODIUM 100 MG CAPSULE PO SCH (21:00)
[2017-07-15] MEDS ORDERED: morphine 20 MG/ML ORAL.CONC SL PRN (21:20)
[2017-07-15] MEDS ORDERED: morphine 20 MG/ML ORAL.CONC ONE (22:34)
--- NOTE | 2017-07-16 14:40 | Death Note ---
Discharge Sum: Prov - Provider Patient information: Note initiated : 07/16/17 at 2:37 pm Service Date, if different from initiated Date: [] Patient: Niecy Canchola a 81 y/o F admitted on 07/13/17 for Anasarca, SOB, AFib w/ RVR. Chief Complaint: [] Admitting clinician: Jad Cobian Discharge Sum: Diag - PCOD Cause of : Lung mass Discharge Sum: Summary - Date and Time Date of admission: 07/13/17 20:04 Date of : 07/16/17 Time of : 00:30 - Summary Details: Niecy is an 81-year-old who lives with her family, along with her Josesito at [place]. She has been in her baseline state of health and has been ambulating with the use of a walker. However, over the last 10 to 14 days, the patient has gotten progressively weaker wherein she has stopped ambulating and has been mostly bedridden. She has gained substantial amount of weight, over 20 pounds, with significant dependent edema including bilateral lower extremity up to the thighs. Over the last one week, she has had increasing orthopnea and progressive shortness of breath, limiting her functionality. Symptoms have progressed that over the last couple of days she has been barely able to move. She has had significant loss of appetite. However, she denies associated cough, fever, chest palpitation, diarrhea, dysuria, or bloody stool. She further denies joint pain. She endorses to generalized bruising, upper and lower extremities. With worsening symptoms, she came to [facility] ER along with her daughter, Dona and her Josesito. Initial workup was significant for atrial fibrillation with RVR. The patient was started on diltiazem drip. She received bronchodilators for history of COPD and received Lasix for shortness of breath. 07/14 moderate response to diuretics with over thousand cc out last 18 hours. overnight fever chills. Persistent shortness of breath. Generalized ecchymosis. Foleys draining dark urine. Family at bedside.white count 11.2, platelets 51. 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 Will need oncology follow-up and outpatient. improving BUN. Bilirubin at 3.3 and indirect fraction 1.7. downtrending LFTs. ultrasound right upper quadrant. mild rhabdomyolysis clinically clearing. clinical picture suggestive of pulmonary hypertension with passive hepatic congestion and possible congestive hepatopathy. Await echocardiogram. continue aggressive diuresis. Continue close monitoring of map due to cardiac output dependent on preload. systolics around 120 07/15 Patient seen examined, no acute overnight issues, labs and images reviewed, The patient family was given updated by dr cobian and myself regarding the new finding on the Lung CT which showed a large mass suggestive for lung cancer. The patients family were explained regarding overall poor prognosis They requested comfort care ,Patient will be transitioned to comfort care status. 07/16 patient was transitioned to comfort care status, with use of morphine and ativan to help allay anxiety, and shortness of breath patient comfortably this morning 00.30 family was at bedside. Cause of Lung Mass, likely malignancy. - Additional Data Confirmation of as documented by pronouncing clinician: no pulse, no respirations, no heart sounds, pupils fixed and dilated Family: at bedside Attending physician: Jad Cobian Was code activated?: No Autopsy requested?: No soft work wrapper examiner notified?: No Organ bank notified?: No Advance directives?: No Hospice patient?: No
== END 2017-07-16 02:15 | disposition expired | DRG 948 ==
LOC: ED 14:02 → MERGE 14:02 → ICU 19:55 → MEDSUR 07-15 11:03
PROVIDERS: ADMIT Internal Medicine; ATTEND Internal Medicine